=== PATIENT | female | born 1985 | race Caucasian/White ===

== ENCOUNTER → 2018-03-09 | Outpatient (CLI) | payer BC ==
--- NOTE | 2018-03-09 07:30 | US ---
EXAMINATION TYPE: US abdomen complete DATE OF EXAM: 03/09/2018 COMPARISON: NONE CLINICAL HISTORY: R10.11 right upper quadrant pain. Nausea, sweating x 1 year EXAM MEASUREMENTS: Liver Length: 15.2 cm Gallbladder Wall: 0.1 cm CBD: 0.7 cm Spleen: 7.7 cm Right Kidney: 10.4 x 5.1 x 4.6 cm Left Kidney: 11.0 x 5.2 x 4.4 cm Pancreas: wnl, duct = 0.1 cm Liver: wnl Gallbladder: Sludge seen within Evidence for sonographic Rosado's sign: no CBD: Large in size Spleen: wnl Right Kidney: wnl Left Kidney: wnl Upper IVC: wnl Abd Aorta: wnl IMPRESSION: 1. Gallbladder sludge with no evidence of wall thickening. Common bile duct does appear to be enlarge d measuring 7 mm. Distal CBD stone or obstruction not excluded. Consider follow-up MRCP or ERCP as cl inically warranted.
== END ==
LOC: RADUSWWP 06:51
PROVIDERS: ATTEND Family Medicine
DX: K82.8 Other specified diseases of gallbladder (principal)
CPT/HCPCS: 76700

== ENCOUNTER → 2018-04-13 | Outpatient (CLI) | payer BC ==
--- NOTE | 2018-04-13 17:56 | NM ---
EXAMINATION TYPE: NM hepatobiliary w EF DATE OF EXAM: 04/13/2018 COMPARISON: NONE HISTORY: Abdominal pain TECHNIQUE: After the intravenous administration of 5.12 mCi Tc 99m Mebrofenin hepatobiliary scintigra phy is performed. Immediate images post injection. FINDINGS: There is satisfactory initial accumulation of tracer by the liver. The gallbladder is visualized wit hin 16 minutes. The small bowel activity is noted within 26 minutes. At one hour 8 ounces of oral e nsure plus is given to mimic CCK and gallbladder ejection fraction is calculated at 68 %, in the norm al range. Therefore there is no scintigraphic evidence of cystic or common bile duct obstruction to suggest acute cholecystitis or gallbladder dyskinesia. IMPRESSION: Normal exam. No focal liver defect. Normal gallbladder ejection fraction.
== END | disposition home or self-care (01) ==
LOC: RADNMMAIN 14:33
PROVIDERS: ATTEND Family Medicine
DX: R10.11 Right upper quadrant pain (principal)
CPT/HCPCS: 78226; A9537

== ENCOUNTER 2019-11-16 14:22 | Inpatient (IN) | payer OTHER ==
[2019-11-16] MEDS ORDERED: TERBUTALINE 1 MG/ML VIAL SQ PRN (14:57)
[2019-11-16] MEDS ORDERED: OXYTOCIN 10 UNIT/ML 1 ML VIAL IM PRN (14:57)
[2019-11-16] MEDS ORDERED: METHYLERGONOVINE 0.2 MG/ML 1 ML AMP IM PRN (14:57)
[2019-11-16] MEDS ORDERED: LIDOCAINE 0.5% (PF) 5 MG/ML (50 ML SDV) SQ PRN (14:57)
[2019-11-16] MEDS ORDERED: CARBOPROST TROMETHAMINE 250 MCG/ML 1 ML AMP IM PRN (14:57)
[2019-11-16] MEDS ORDERED: LACTATED RINGERS 1,000 ML IV SCH (15:00)
[2019-11-16] MEDS ORDERED: OXYTOCIN 30 UNITS/500 ML NS 30 UNIT in SALINE 1 500ML.BAG IV SCH (15:00)
--- NOTE | 2019-11-16 15:23 | P.HPOB ---
History of Present Illness H&P Date: 11/16/19 Chief Complaint: Contractions This is a 34-year-old 2 para 0010 woman with an estimated due date of 11/23/2019 based on LMP consistent with second trimester ultrasound. She presents at 39 weeks with complaints of contractions and possible leakage of fluids since yesterday evening. Upon her initial evaluation of labor and delivery triage she is found to be completely dilated with bulging membranes. Her has been uncomplicated however she does have a history of substance abuse. She has been using Suboxone and did have a positive initial urine drug screen for cannabinoids and amphetamines. She is known Rh- and did receive Rh I G appropriately at approximately 28 weeks gestation. Obstetric history: Voluntary termination of in 2002 Laboratory data blood type A-, antibody screen negative, rubella immune, VDRL nonreactive, hepatitis B surface antigen negative, HIV negative, gonorrhea and clinic cultures negative, glucose tolerance testing within normal limits, group B strep negative Review of Systems All systems: negative Past Medical History Past Medical History: No Reported History History of Any Multi-Drug Resistant Organisms: None Reported Past Surgical History: No Surgical Hx Reported Past Anesthesia/Blood Transfusion Reactions: No Reported Reaction Past Psychological History: Anxiety Smoking Status: Current every day smoker Past Alcohol Use History: None Reported Past Drug Use History: Marijuana, Methamphetamine Medications and Allergies Home Medications Medication Instructions Recorded Confirmed Type Buprenorphine HCl [Subutex] 2 mg SL AC-TID 11/16/19 11/16/19 History Pnv,Calcium 72/Iron/Folic Acid 1 tab PO DAILY 11/16/19 11/16/19 History [ Plus Tablet] Allergies Allergy/AdvReac Type Severity Reaction Status Date / Time No Known Allergies Allergy Verified 11/16/19 14:33 Exam Intake and Output 11/16/19 11/16/19 11/16/19 06:59 14:59 22:59 Other: Weight 64.864 kg Targeted physical exam is performed. This is a very uncomfortably actively laboring female. On pelvic examination the cervix is 9+ centimeters dilated. 4 bag of amniotic fluid is ruptured and clear. Vertex is in the -1 station. heart tones are category 1 by external monitoring and she is robbin every 2 minutes spontaneously Assessment and Plan (1) 39 weeks gestation of Current Visit: Yes Status: Acute Code(s): Z3A.39 - 39 WEEKS GESTATION OF SNOMED Code(s): 63597754 (2) Advanced maternal age (AMA) in Current Visit: Yes Status: Acute Code(s): CIJ2715 - SNOMED Code(s): 331333373 (3) Rh negative, maternal Current Visit: Yes Status: Acute Code(s): O26.899 - OTH RELATED CONDITIONS, UNSPECIFIED TRIMESTER; Z67.91 - UNSPECIFIED BLOOD TYPE, RH NEGATIVE SNOMED Code(s): 302593692 (4) Maternal substance abuse Current Visit: Yes Status: Acute Code(s): [id number] - SNOMED Code(s): 906580695 Plan: 34-year-old 2 para 0010 woman admitted at 39 weeks gestation in advanced active labor. Group B strep negative and Rh-. heart tones currently reassuring by external monitoring. Anticipate normal spontaneous vaginal delivery. UDS pending. Nursery notified of maternal history of substance abuse.
[2019-11-16 15:37] LABS: Basophils % (A) 0 %; Eosinophils # (A) 0.1 k/uL (0-0.7); Eosinophils % (A) 1 %; HCT 36.4 % (34.0-46.0); HGB 12.4 gm/dL (11.4-16.0); Lymphocytes % (A) 7 %; MCH 33.7 pg (25.0-35.0); MCV 99.1 fL (80.0-100.0); Mean Platelet Volume 9.3; Monocytes # (A) 0.6 k/uL (0-1.0); Monocytes % (A) 4 %; Neutrophils # (A) 12.6 k/uL (1.3-7.7); Neutrophils % (A) 87 %; Platelet Count 183 k/uL (150-450); RBC 3.68 m/uL (3.80-5.40); RDW 13.4 % (11.5-15.5); WBC 14.5 k/uL (3.8-10.6)
[2019-11-16] MEDS ORDERED: ZOLPIDEM 5 MG TAB PO PRN (17:18)
[2019-11-16] MEDS ORDERED: BENZOCAINE/MENTHOL SPRAY 1 GM/SPRAY AEROSOL TOPICAL PRN (17:18)
[2019-11-16] MEDS ORDERED: diphenhydrAMINE 25 MG CAP PO PRN (17:18)
[2019-11-16] MEDS ORDERED: ACETAMINOPHEN TAB 325 MG TAB PO PRN (17:18)
[2019-11-16] MEDS ORDERED: diphenhydrAMINE 50 MG/ML 1 ML VIAL IVP PRN ×2 (17:18)
[2019-11-16] MEDS ORDERED: LANOLIN CREAM 5 GM TUBE TOPICAL PRN (17:18)
[2019-11-16] MEDS ORDERED: WITCH HAZEL 1 EACH MED..PAD TOPICAL PRN (17:18)
[2019-11-16] MEDS ORDERED: HYDROCORTISONE 2.5% RECTAL CREAM 30 GM TUBE RECTAL PRN (17:18)
[2019-11-16] MEDS ORDERED: diphenhydrAMINE 50 MG CAP PO PRN (17:18)
[2019-11-16] MEDS ORDERED: SIMETHICONE 80 MG CHEWABLE PO PRN (17:18)
--- NOTE | 2019-11-16 17:18 | P.PROBDLV ---
Vaginal Delivery Note - . Vaginal Delivery Note: Findings: Male infant in the vertex left occiput anterior position with Apgars of 9 at 1 minute and 9 at 5 minutes weighing 6 lbs. 9 oz., 2990 g. Third-degree midline episiotomy. EBL 200 mL's. Intact, three-vessel cord placenta. Delivery summary: This is a 34-year-old 2 para 0010 woman who presented in advanced active labor at 39 weeks gestation. She had had mild labor throughout the night and when she presented to labor and delivery triage she was found to be completely dilated. Following admission she underwent artificial rupture of membranes and clear fluid was noted. She is robbin every 2 minutes spontaneously. She did very rapidly reach complete cervical dilation and commenced pushing. She had an approximately 1 hour second stage of labor. The end of the second stage of labor she had deep variable heart rate decelerations and scalp electrode was placed to confirm versus maternal heart rate. She made excellent progress with pushing and at the time of she was repositioned, prepped and draped in the modified Raoul position. Secondary to bradycardia a midline episiotomy was cut after lidocaine was infused in the perineum. With next maternal effort the head did deliver from the left occiput anterior position. A nuchal cord 1 was reduced. The anterior shoulder followed by the posterior shoulders were easily delivered and the rest of the was delivered onto the field. The cord was noted to be wrapped around the left arm and torso. The nose and mouth were bulb suctioned and the infant was placed on the maternal abdomen. Eventually the cord was clamped and cut. Cord blood was taken for maternal Rh- status. An intact three-vessel cord placenta was then rapidly expressed. The perineum was inspected and a third degree laceration was noted. This was further infused with lidocaine and repaired in the usual fashion. Initially the muscle and capsule reapproximated with interrupted sutures of 3-0 Vicryl suture followed by running stitch to close the vaginal mucosa and overlying skin. Rectal examination was performed and there was no disruption of the rectal mucosa. The rest of the vagina was inspected and no further lacerations were noted. The uterus was massaged and was noted to be firm right below the level of the umbilicus. The bladder was drained with a King catheter and UDS specimen was taken. EBL was approximately 200 hours and both mother and were doing well post delivery in the room WERE correct.
[2019-11-16] MEDS ORDERED: OXYTOCIN 20 UNITS/1000 ML NS 1,000 ML IV SCH (17:30)
[2019-11-16 17:50] LABS: Amphetamine Screen,Urine Detected (NotDetected); Barbiturate Screen,Urine Not Detected (NotDetected); Benzodiazepines Screen,Urine Not Detected (NotDetected); Cocaine Screen,Urine Not Detected (NotDetected); Methadone Screen, Urine Not Detected (NotDetected); Opiate Screen,Urine Not Detected (NotDetected); Oxycodone Screen, Urine Not Detected (NotDetected); Phencyclidine Screen,Urine Not Detected (NotDetected); Tricyclic Antidepressant,Urine Not Detected (NotDetected); Urn Cannabinoid Scrn Not Detected (NotDetected)
[2019-11-16] MEDS: IBUPROFEN 600 MG TAB PO PRN (18:51)
[2019-11-16] MEDS: SENNOSIDES-DOCUSATE SODIUM 1 EACH TAB PO SCH (19:59)
[2019-11-16] MEDS: SENNA LEAF EXTRACT SYRUP 528 MG/15 ML CUP PO SCH (19:59)
[2019-11-16] MEDS ORDERED: Rhogam IMMUNE GLOBULIN 1,500 UNIT/1 ML IM ONE (22:10)
[2019-11-17 05:55] LABS: Basophils % (A) 0 %; Eosinophils # (A) 0.2 k/uL (0-0.7); Eosinophils % (A) 2 %; HCT 34.4 % (34.0-46.0); HGB 11.5 gm/dL (11.4-16.0); Lymphocytes # (A) 1.4 k/uL (1.0-4.8); Lymphocytes % (A) 11 %; MCH 33.3 pg (25.0-35.0); MCHC 33.4 g/dL (31.0-37.0); MCV 99.9 fL (80.0-100.0); Monocytes # (A) 0.6 k/uL (0-1.0); Monocytes % (A) 5 %; Neutrophils % (A) 81 %; Platelet Count 177 k/uL (150-450); RBC 3.45 m/uL (3.80-5.40); RDW 13.3 % (11.5-15.5); WBC 12.4 k/uL (3.8-10.6)
[2019-11-17 08:28] VITALS: RESP 16
[2019-11-17] MEDS: SENNOSIDES-DOCUSATE SODIUM 1 EACH TAB PO SCH ×2 (08:35→19:25)
--- NOTE | 2019-11-17 08:43 | P.PNOBGVD ---
Subjective - Subjective Principal diagnosis: Postop day 1 Interval history: Feeling well, spontaneously voiding, minimal lochia Patient reports: Reports appetite normal, Reports voiding normally, Reports pain well controlled, Reports ambulating normally, Denies dizzy ambulation : doing well (In special care nursery), bottle feeding Objective - Latest Vital Signs Latest vital signs: Vital Signs Temp Pulse Resp BP Pulse Ox 11/17/19 08:00 98.0 F 94 16 108/68 11/17/19 03:29 98.7 F 94 18 111/68 98 11/16/19 22:37 97.7 F 101 H 18 122/79 98 11/16/19 19:20 97.1 F L 88 18 141/76 98 11/16/19 18:46 93 14 122/73 11/16/19 18:20 88 16 145/77 11/16/19 18:05 88 16 122/77 11/16/19 17:50 90 16 118/75 11/16/19 17:29 93 14 114/68 11/16/19 17:20 96.4 F L 92 16 129/77 11/16/19 15:45 96 F L 90 16 130/77 Intake and Output 11/16/19 11/17/19 11/17/19 22:59 06:59 14:59 Output Total 200 Balance -200 Output: Estimated Blood Loss 200 Other: # Voids 1 Weight 64.864 kg - Exam Extremities: Present: normal Abdomen: Present: normal appearance Uterus: Present: normal - Labs Labs: Abnormal Lab Results - Last 24 Hours (Table) 11/16/19 11/16/19 11/17/19 Range/Units 15:05 17:10 05:41 WBC 14.5 H 12.4 H (3.8-10.6) k/uL RBC 3.68 L 3.45 L (3.80-5.40) m/uL Neutrophils # 12.6 H 10.0 H (1.3-7.7) k/uL Ur Amphetamines Screen Detected H (NotDetected) U Methamphetamines Scrn Detected H (NotDetected) Assessment and Plan (1) 39 weeks gestation of Current Visit: Yes Status: Acute Code(s): Z3A.39 - 39 WEEKS GESTATION OF SNOMED Code(s): 34218087 (2) Advanced maternal age (AMA) in Current Visit: Yes Status: Acute Code(s): [id number] - SNOMED Code(s): 596929418 (3) Rh negative, maternal Current Visit: Yes Status: Acute Code(s): O26.899 - OTH RELATED CONDITIONS, UNSPECIFIED TRIMESTER; Z67.91 - UNSPECIFIED BLOOD TYPE, RH NEGATIVE SNOMED Code(s): 524000465 (4) Maternal substance abuse Current Visit: Yes Status: Acute Code(s): BYQ3863 - SNOMED Code(s): 910480793 (5) Perineal laceration with delivery, third degree Current Visit: Yes Status: Acute Code(s): O70.20 - THIRD DEGREE PERINEAL LACERATION DURING DELIVERY, UNSP SNOMED Code(s): 06925371 (6) Nuchal cord Current Visit: Yes Status: Acute Code(s): O69.81X0 - LABOR AND DEL COMP BY CORD AROUND NECK, W/O COMPRSN, UNSP SNOMED Code(s): 605100478 (7) Normal spontaneous vaginal delivery Current Visit: Yes Status: Acute Code(s): O80 - ENCOUNTER FOR FULL-TERM UNCOMPLICATED DELIVERY SNOMED Code(s): 40809729 Plan: day 1 status post normal spontaneous vaginal delivery with third- degree perineal laceration. Recovering well. Infant in the special care nursery for observation and support. Maternal UDS came back positive for amphetamines and methamphetamines. Discussed probable course for in the nursery. Discharge home for mother anticipated tomorrow.
[2019-11-17] MEDS: SENNA LEAF EXTRACT SYRUP 528 MG/15 ML CUP PO SCH ×2 (10:13→20:28)
[2019-11-17] MEDS: IBUPROFEN 600 MG TAB PO PRN (19:28)
[2019-11-18] MEDS: SENNOSIDES-DOCUSATE SODIUM 1 EACH TAB PO SCH (08:16)
[2019-11-18] MEDS: IBUPROFEN 600 MG TAB PO PRN (08:16)
--- NOTE | 2019-11-18 08:33 | P.DS ---
Providers Date of admission: 11/16/19 14:56 Expected date of discharge: 11/18/19 Attending physician: Kathe Kam Primary care physician: Stated None - Discharge Diagnosis(es) (1) 39 weeks gestation of Current Visit: Yes Status: Acute (2) Advanced maternal age (AMA) in Current Visit: Yes Status: Acute (3) Maternal substance abuse Current Visit: Yes Status: Acute (4) Normal spontaneous vaginal delivery Current Visit: Yes Status: Acute (5) Perineal laceration with delivery, third degree Current Visit: Yes Status: Acute (6) Rh negative, maternal Current Visit: Yes Status: Acute Hospital Course: This pleasant 34-year-old G2 now P1011 presented to labor and delivery at 39 weeks of gestation with complaints of contractions and possible loss of fluid the day earlier. On initial exam she was noted to be completely dilated with a bulging bag of water. Patient had been receiving routine care that was essentially uncomplicated she does have a history of substance abuse and has been using Suboxone, initial urinary drug screen was positive for cannabinoids, and amphetamines. On initial admission she was positive for amphetamines and methamphetamines. She is also known to be Rh- and receive program at approximately 28 weeks of gestation. Patient was admitted to labor and delivery and underwent amniotomy clear fluid was obtained. Patient began pushing and was noted to have deep variable heart rate decelerations therefore scalp electrode was placed she pushed to a crown secondary to a bradycardia midline episiotomy was cut and was delivered with a nuchal cord 1. Liveborn male delivered at 1657, weight of 6 lbs. 9 oz. with Apgars of 9 and 9 at one and 5 minutes respectively. Midline episiotomy was repaired in usual fashion with 3-0 Vicryl. Patient's course has been essentially uneventful. On this day #2 she is ambulating and voiding without difficulty. She is tolerating regular diet without nausea or vomiting. She denies concerns and does wish discharge home. Infant is admitted to the nursery given her history of Subutex use and will be monitored for signs of withdrawal. She understands this admission and desires discharge this morning. Social work consult is pending at this time Patient Condition at Discharge: Good Plan - Discharge Summary Discharge Rx Participant: No New Discharge Prescriptions: No Action Pnv,Calcium 72/Iron/Folic Acid [ Plus Tablet] 1 tab PO DAILY Buprenorphine HCl [Subutex] 2 mg SL AC-TID Discharge Medication List Buprenorphine HCl [Subutex] 2 mg SL AC-TID 11/16/19 [History] Pnv,Calcium 72/Iron/Folic Acid [ Plus Tablet] 1 tab PO DAILY 11/16/19 [History] Follow up Appointment(s)/Referral(s): Kathe Kam DO [Doctor of Osteopathic Medicine] - 4 Weeks Patient Instructions/Handouts: Vaginal Delivery (DC), Vaginal Delivery (GEN)
[2019-11-18 08:48] VITALS: BP 121/70; PULSE 97; TEMP 98.3
[2019-11-18] MEDS: SENNA LEAF EXTRACT SYRUP 528 MG/15 ML CUP PO SCH (09:38)
--- NOTE | 2019-11-19 15:39 | CDI ---
Documentation Clarification Form Date: 11/19/19 From: Amy Dumont Phone: If you have a question about this query, please contact Lila Burnett Cremator at [phone] between 8am and 5pm. Admit Date: 11/16/19 Discharge Date: 11/18/19 Patient Name: ANSHU HILL Visit Number: [id number] ATTENTION: The Clinical Documentation Specialists (CDI) and [facility] Coding Staff appreciate your assistance in clarifying documentation. Please respond to the clarification below the line at the bottom and electronically sign. The CDI & [facility] Coding staff will review the response and follow-up if needed. Please note: Queries are made part of the Legal Health Record. If you have any questions, please contact the author of this message via ITS. Dear Dr. Emilie Alcaraz, A woman, 39 weeks gestation admitted in advanced active labor. She had a manually assisted vaginal delivery of a normal . The patient suffered a partial third degree laceration, initially the muscle and capsule reapproximated with interrupted sutures of 3-0 Vicryl suture followed by running stitch to close the vaginal mucosa and overlying skin. Rectal examination was performed and there was no disruption of the rectal mucosa. In your professional opinion, did the third degree laceration involve: *Injury to perineal skin only *Injury to perineum involving perineal muscles but not involving anal sphincter *Injury to perineum involving anal sphincter complex *Less than 50% of external anal sphincter (EAS) thickness torn *More than 50% of external anal sphincter (EAS) thickness torn *Both external anal sphincter (EAS) and internal anal sphincter (IAS) torn *Injury to perineum involving anal sphincter complex (external anal sphincter (EAS) and internal anal sphincter (IAS) and anal epithelium *Other, please specify *Clinically unable to determine Injury involving the perineal muscle but not the anal sphincter -[facility]
== END 2019-11-18 10:30 | disposition home or self-care (01) | DRG 806 ==
LOC: FBPOP 14:22 → 4FBP 14:56
PROVIDERS: ADMIT Obstetrics & Gynecology; ATTEND Obstetrics & Gynecology Obstetrics
PROC: 10E0XZZ Delivery of Products of Conception, External Approach (ICD-10-PCS; principal; 2019-11-16)
PROC: 3E0234Z Introduction of Serum, Toxoid and Vaccine into Muscle, Percutaneous Approach (ICD-10-PCS; principal; 2019-11-16)
PROC: 0W8NXZZ Division of Female Perineum, External Approach (ICD-10-PCS; principal; 2019-11-16)
DX: O69.81X0 Labor and delivery complicated by cord around neck, without compression, not applicable or unspecified (principal); O70.20 Third degree perineal laceration during delivery, unspecified; Z37.0 Single live birth; F17.200 Nicotine dependence, unspecified, uncomplicated; O99.334 Smoking (tobacco) complicating childbirth; O76 Abnormality in fetal heart rate and rhythm complicating labor and delivery; O26.893 Other specified pregnancy related conditions, third trimester; Z67.11 Type A blood, Rh negative; Z3A.39 39 weeks gestation of pregnancy; Z71.6 Tobacco abuse counseling; Z79.899 Other long term (current) drug therapy; Z86.59 Personal history of other mental and behavioral disorders
CPT/HCPCS: 59025; 80306; 85025; 85461; 86850; 86870; 86880; 86900; 86901; 86902; 99213